=== PATIENT | male | born 1980 | race Caucasian/White ===

== ENCOUNTER 2019-01-14 11:56 | Outpatient (CLI) | payer BC ==
--- NOTE | 2019-01-14 12:31 | RAD ---
EXAM: Lumbar spine 3 views: HISTORY: Ankylosing spondylitis, M [age] COMPARISON: 09/18/2016 FINDINGS: Irregular abnormal calcific opacity noted between the left L4 and L5 transverse processes measuring 0 .9 cm, new from prior study, this is certainly concerning for the possibility of a left ureteral calculus. If that is a clinical concern, follow-up noncontrast CT scan is suggested. No evidence for acute fracture or dislocation involving the visualized spine. There are disc osteophytosis and facet arthrosis changes. No evidence for malalignment. No evidence for a bone lesion. IMPRESSION: Spondylosis. Stable appearing lumbar spine. New calcific focus between the left L4 and L5 transverse process regio ns, possibly a ureteral calculus. Additional imaging should be considered depending upon clinical concern.
--- NOTE | 2019-01-14 12:43 | RAD ---
Exam: Cervical spine 5 views: HISTORY: Ankylosing spondylitis. COMPARISON: 09/18/2016 FINDINGS: Evidence of fusion involving the C2-C3, C3-C4, and C4-C5 facet joints bilaterally, overall stable. Di sc osteophytosis at C5-C6. Some nonspecific sclerosis involving the C2 odontoid-anterior C1 ring. No prevertebral soft tissue swelling. No significant malalignment. Little change from prior study. No evidence for significant anterior longitudinal ligament ossification. IMPRESSION: Nonspecific facet joint fusion bilaterally at C2-C3, C3-C4, and C4-C5 as well as some sclerosis and n arrowing at the odontoid anterior C1 ring region. Stable appearance from prior study.
== END 2019-01-14 11:57 | disposition home or self-care (01) ==
LOC: BICRAD 11:56
PROVIDERS: ATTEND Internal Medicine Rheumatology
DX: M45.0 Ankylosing spondylitis of multiple sites in spine (principal); M48.02 Spinal stenosis, cervical region; M47.816 Spondylosis without myelopathy or radiculopathy, lumbar region; G95.89 Other specified diseases of spinal cord; Z98.1 Arthrodesis status
CPT/HCPCS: 72050; 72100

== ENCOUNTER 2020-06-22 11:35 | Outpatient (CLI) | payer BC ==
--- NOTE | 2020-06-22 12:37 | RAD ---
EXAM: XR Cervical Spine 4 View Min DATE: 06/22/2020 12:00 PM INDICATION: History of ankylosing spondylitis COMPARISON: Prior cervical spine radiograph dated January 14, 2019. FINDING: The ankylosis of the facet complexes of C2-C5 appears stable. There is very subtle anteroli sthesis of C5 on C6 that is accentuated with flexion and reduces with extension. There is moderate disc degenerative disease at C5-6. This is mildly progressed from the prior exam. Prevertebral soft t issues are normal appearing. The neural foramina appear patent. Lateral masses are not well seen on the open-mouth odontoid. Lung apices are clear. IMPRESSION: 1. Stable ankylosis of the facet complexes from C2 through C5. 2. Worsening disc degenerative disease and facet osteoarthritic change at C5-6 where there is mild an terolisthesis of C5 on C6 that is accentuated with flexion and reduces with extension
--- NOTE | 2020-06-22 12:40 | RAD ---
EXAM: XR Lumbar Spine Min 4 View DATE: 06/22/2020 12:00 PM INDICATION: History of ankylosing spondylitis COMPARISON: Prior lumbar spinal radiographs dated January 14, 2019 FINDING: No flowing lumbar syndesmophytes are grossly evident. Mild facet osteoarthritic change at L 3-4, L4-5 and L5-S1 is similar. Vertebral body heights are preserved. No pars defects are grossly evident. SI joints are ankylosed. There is advanced osteoarthrosis of the right hip and moderate oste oarthrosis of the left hip. The previously seen calculus overlying left psoas shadow is no longer identified. IMPRESSION:Stable SI joint ankylosis. Mild spondylosis of the lumbar spine is stable.
== END 2020-06-22 11:36 | disposition home or self-care (01) ==
LOC: BICRAD 11:35
PROVIDERS: ATTEND Internal Medicine Rheumatology
DX: M45.0 Ankylosing spondylitis of multiple sites in spine (principal); M47.816 Spondylosis without myelopathy or radiculopathy, lumbar region; M50.322 Other cervical disc degeneration at C5-C6 level; M47.812 Spondylosis without myelopathy or radiculopathy, cervical region; M43.12 Spondylolisthesis, cervical region
CPT/HCPCS: 72050; 72110